=== PATIENT | female | born 1955 | race Caucasian/White ===

== ENCOUNTER → 2018-11-23 | Outpatient (CLI) | payer OTHER ==
--- NOTE | 2018-11-23 13:06 | RAD ---
Abdominal ultrasound without comparison for left upper quadrant tenderness. TECHNIQUE AND FINDINGS: Real-time grayscale and color and Doppler evaluation of the abdominal organs is performed. The aorta is nonaneurysmal. IVC is patent. There is diffuse fatty infiltration of the liver, with no focal parenchymal abnormalities identified. Echotexture is diffusely heterogeneous particularly involving poorly seen subdiaphragmatic regions. No intra or extrahepatic biliary ductal dilatation is seen. Common bile duct measures 3 mm. Gallbladder is fluid distended and grossly unremarkable. No sonographic Shah sign was identified. There is hepatopedal flow within a patent portal vein. Visualization of the pancreas is limited, however visualized portions are grossly unremarkable. The spleen measures 11.7 cm and is normal in appearance. No free or loculated fluid collections are identified. The right kidney measures 11.0 x 5.0 x 4.8 cm and the left measures 12.0 x 5.3 x 6.1 cm. No hydronephrosis or focal parenchymal abnormality. IMPRESSION: 1. Diffuse fatty infiltration of the liver, with vague heterogeneous echotexture throughout the poorly visualized subdiaphragmatic regions. No discrete hepatic masses. Consider further evaluation with three-phase CT scan of the abdomen or MRI of the abdomen for better assessment of hepatic parenchyma. Electronically signed by: Eric Wadsworth MD (11/23/2018 1:03 PM) [id number]
== END | disposition home or self-care (01) ==
LOC: US 08:20
PROVIDERS: ATTEND Registered Nurse
DX: K76.0 Fatty (change of) liver, not elsewhere classified (principal)
CPT/HCPCS: 76700

== ENCOUNTER → 2018-11-25 | Outpatient (CLI) | payer OTHER ==
[~2018-11-25] MED LIST: IOHEXOL 240 MG/ML 50ML VIAL. ONE; IOHEXOL 300 MG/ML 75 ML VIAL. IV ONE
[2018-11-25 09:34] LABS: CALCIUM 9.9 mg/dL (8.5-10.1); CREATININE 0.9 mg/dL (0.6-1.0); GFR 63.2; POTASSIUM 4.2 mmol/L (3.5-5.1)
--- NOTE | 2018-11-25 12:13 | RAD ---
CT of the abdomen with and without contrast, 11/25/2018: HISTORY: Abnormal liver on ultrasound exam Multidetector CT imaging was performed prior to and following an IV bolus injection of iodinated contrast material. The postcontrast imaging was obtained during access arterial and portal venous phases. Oral contrast material was also given for GI tract opacification. The liver is of lower than normal density in a fairly diffuse pattern compatible with fatty change. [Small medium density foci adjacent to the gallbladder are compatible with areas of focal fatty sparing.] No hepatic mass is seen. The gallbladder is unremarkable. The pancreas shows no abnormality. The spleen is of normal size. No renal or adrenal abnormality is detected. There is mild aortoiliac calcific plaquing without evidence of aneurysm. No abdominal adenopathy is seen. The stomach, duodenum and visualized bowel loops are unremarkable. No free fluid is evident in the abdomen. IMPRESSION: 1. Hepatic steatosis. 2. The abdomen is otherwise unremarkable. PQRS Compliance Statement: One or more of the following individualized dose reduction techniques were utilized for this examination: 1. Automated exposure control 2. Adjustment of the mA and/or kV according to patient size 3. Use of iterative reconstruction technique Electronically signed by: Efra Hummel MD (11/25/2018 12:10 PM) [facility]
== END | disposition home or self-care (01) ==
LOC: US 08:13
PROVIDERS: ATTEND Registered Nurse
DX: K76.0 Fatty (change of) liver, not elsewhere classified (principal)
CPT/HCPCS: 36415; 74170; 80048; Q9967

== ENCOUNTER → 2018-11-26 | Outpatient (CLI) | payer OTHER ==
--- NOTE | 2018-11-26 14:36 | RAD ---
PA and lateral chest x-ray without comparison for left upper quadrant pain, cough. FINDINGS: There is a small calcified granuloma in the right central lung. Lungs are otherwise clear. Cardiomediastinum is grossly unremarkable. No significant soft tissue or osseous abnormalities are seen. IMPRESSION: 1. No acute cardiopulmonary abnormality. Electronically signed by: Eric Wadsworth MD (11/26/2018 2:33 PM) [id number]
--- NOTE | 2018-11-27 09:37 | RAD ---
DATE: 11/26/2018 EXAM: MAMMO SAY SCREENING BILATERAL HISTORY: Routine screening COMPARISON: 01/24/2017 This study was interpreted with the benefit of Computerized Aided Detection (CAD). Breast Density: HETERO The breast parenchyma is heterogenously dense, which could reduce sensitivity of mammography. Breast parenchyma level C. FINDINGS: 2D and 3-D tomosynthesis imaging was performed in CC and MLO projections. There is mild breast asymmetry with increased density in the lateral retroareolar region on the left compared to the right. This is unchanged. No new or enlarging breast densities are seen. Minimal benign type calcifications present. No suspicious microcalcifications have developed. IMPRESSION: Stable mammograms without evidence of malignancy. BI-RADS CATEGORY: 2 BENIGN FINDING(S) RECOMMENDED FOLLOW-UP: 12M 12 MONTH FOLLOW-UP PQRS compliance statement: Patient information was entered into a reminder system with a target due date for the next mammogram. Mammography is a sensitive method for finding small breast cancers, but it does not detect them all and is not a substitute for careful clinical examination. A negative mammogram does not negate a clinically suspicious finding and should not result in delay in biopsying a clinically suspicious abnormality. "Our facility is accredited by the [employer] Mammography Program."
== END | disposition home or self-care (01) ==
LOC: PMG 13:52
PROVIDERS: ATTEND Registered Nurse
DX: Z12.31 Encounter for screening mammogram for malignant neoplasm of breast (principal); R10.12 Left upper quadrant pain; R05 Cough
CPT/HCPCS: 71046; 77063; 77067

== ENCOUNTER → 2019-07-01 | Outpatient (CLI) | payer OTHER ==
[~2019-07-01] MED LIST changes: -IOHEXOL 240 MG/ML 50ML VIAL. ONE
[2019-07-01 10:52] LABS: CREATININE 0.8 mg/dL (0.6-1.0); GFR 72.4
--- NOTE | 2019-07-01 17:50 | RAD ---
Examination: CT SOFT TISSUE NECK W/CONTRAST History: Mass on the back of the neck Comparison/Correlation: None Findings: Axial images of the neck were obtained following IV contrast. Sagittal and coronal reformatted images were provided. The posterior fossa is unremarkable. Left maxillary sinus noted with mucosal thickening. Parotid gland on the right is moderately atrophic. Left parotid gland is unremarkable. Submandibular glands are unremarkable. No enlarged cervical lymph nodes. Trachea is unremarkable. Partially visualized lung apices are unremarkable. A marker was placed at the lower cervical spine level posteriorly. Mild prominence of the subcutaneous fat at this site is noted and raises question of an underlying unencapsulated lipoma being present. A small soft tissue density nodule is present more superiorly and in close proximity to the musculature measuring 0.3 cm diameter. This is well demarcated and of indeterminate significance. Impression: Unencapsulated lipoma involvement is suspected at the site of palpable abnormality at the low cervical spine level posteriorly. No suspicious process. Moderate right parotid gland atrophy. PQRS Compliance Statement: One or more of the following individualized dose reduction techniques were utilized for this examination: 1. Automated exposure control 2. Adjustment of the mA and/or kV according to patient size 3. Use of iterative reconstruction technique Electronically signed by: Bob Stokes MD (07/01/2019 5:48 PM) [facility]
== END | disposition home or self-care (01) ==
LOC: CT 09:13
PROVIDERS: ATTEND Registered Nurse
DX: M54.2 Cervicalgia (principal); R22.1 Localized swelling, mass and lump, neck; I10 Essential (primary) hypertension; E11.9 Type 2 diabetes mellitus without complications; K11.0 Atrophy of salivary gland
CPT/HCPCS: 36415; 70491; 82565; Q9967

== ENCOUNTER → 2020-05-11 | Outpatient (CLI) | payer OTHER ==
[~2020-05-11] MED LIST changes: +CEPH-264 PO; +IOHEXOL 240 MG/ML 50ML VIAL. PO ONE; +PHEN-318 PO
[2020-05-11 08:54] LABS: CREATININE 0.9 mg/dL (0.6-1.0)
--- NOTE | 2020-05-11 12:05 | RAD ---
CT ABDOMEN W/CONTRAST History: RUQ ABD PAIN Comparison: 11/25/2018 Technique: After administration of intravenous contrast, helical CT of the abdomen was performed from the lung bases through the ischial tuberosities. Coronal and sagittal reconstructions were obtained. 75 mL of Omnipaque 300 were used. One or more of the following dose reduction techniques were utilized: Automated exposure control (AEC), Adjustment of mA and/or kV according to patient size, Use of iterative reconstruction technique such as ASiR, CT scan done according to ALARA and image gently/image wisely Findings: The visualized lung bases are clear. Coronary artery atherosclerotic disease. Hepatic steatosis. Cholecystectomy. PICC, spleen, and bilateral adrenal glands are normal. Symmetric renal enhancement. There is no focal renal mass. There is no hydronephrosis. The visualized loops of small bowel are normal. The visualized loops of large bowel are normal. There is no evidence of bowel obstruction. Appendix is normal. There is no free fluid. There is no mesenteric or retroperitoneal adenopathy. The abdominal aorta is normal in caliber. Degenerative changes of the spine. IMPRESSION: 1. No acute findings. 2. Hepatic steatosis. 3. Cholecystectomy. Electronically signed by: Evert Boyle MD (05/11/2020 12:02 PM) [id number]
== END ==
LOC: CT 07:54
PROVIDERS: ATTEND Surgery
DX: K76.0 Fatty (change of) liver, not elsewhere classified (principal); Z90.49 Acquired absence of other specified parts of digestive tract
CPT/HCPCS: 36415; 74160; 82565; 84520; Q9966; Q9967

== ENCOUNTER 2020-06-21 06:48 | Emergency (ER) | payer OTHER ==
[~2020-06-21] VITALS: Ht 170.2 cm; Wt 83.2 kg
[2020-06-21] MEDS: IV NORMAL SALINE 1,000ML 1,000 ML IV ONE (07:17)
--- NOTE | 2020-06-21 07:23 | PHYS DOC ---
Past History Past Medical History: Diabetes, High Cholesterol, Hypertension Past Surgical History: Cholecystectomy, Hysterectomy Smoking: Non-smoker Alcohol Use: None General Adult EDM: Chief Complaint: ABDOMINAL PAIN HPI: HPI: Heidi Alfred is a 64-year-old female who presents with 2 months of sharp abdominal pain. She states that she first felt a bulge in her right lower quadrant and since then has had constant right lower and upper quadrant abdominal pain that worsens after eating. Reports past surgical history of cholecystectomy. She recently saw her primary care physician who was suspicious for a hernia and sent her to Dr. uBllard for surgical evaluation. CT scan at this time was negative for herniation. She continues to have this pain as well as dysuria and hematuria. She states that 3 days ago she had an episode of stress incontinence which is unusual for her. Yesterday she went to a drop-in clinic at PCP office for evaluation for these complaints and had blood work and urinalysis done, but is unsure of the results. She affirms white vaginal discharge over the last month. Reports history of prior hysterectomy. Patient denies all other complaints including lower back pain, fever, and numbness and tingling in her lower extremities. Her last bowel movement was yesterday and was normal for her. Patient affirms history of hypertension, hypercholesterolemia, and diabetes mellitus. She has taken Tylenol intermittently without symptomatic control, most recently last night. Review of Systems: Review of Systems: Constitutional: Denies fever or chills HENT: Denies nasal congestion or sore throat Respiratory: Denies cough or shortness of breath Cardiovascular: Denies chest pain or palpitations GI: Denies nausea or vomiting; affirms abdominal pain : Affirms dysuria, hematuria, incontinence, and vaginal discharge Musculoskeletal: Denies back pain or joint pain Integument: Denies rash or skin lesions Neurologic: Denies headache, focal weakness or sensory changes Complete systems were reviewed and found to be within normal limits, except as documented in this note. Allergies: Allergies: Allergies Coded Allergies Type Severity Reaction Last Updated Verified No Known Drug Allergies 11/25/18 No Physical Exam: PE: Constitutional: Well developed, well nourished, no acute distress, non-toxic appearance HENT: Normocephalic, atraumatic Lungs & Thorax: No respiratory distress, equal chest rise and fall Abdomen: Soft, minimal tenderness to moderate palpation of the right upper and right lower quadrants, no rebound tenderness or guarding, normal bowel sounds in all 4 quadrants, negative Shah sign, no hernia appreciated, nondistended Skin: Warm, dry, no erythema, no rash Back: No tenderness, no CVA tenderness Extremities: No tenderness, no edema, sensation bilaterally intact in lower extremity Neurologic: Alert and oriented X 3, no focal deficits noted Psychologic: Affect normal, judgment normal Current Patient Data: Vital Signs: Vital Signs Date Time Temp Pulse Resp B/P (MAP) Pulse Ox O2 Delivery O2 Flow Rate FiO2 06/21/20 07:00 98.2 108 22 100 Course & Med Decision Making: Course & Med Decision Making Pertinent Labs reviewed. (See chart for details) Patient presented with abdominal pain that has been constant for last few months. Hx of recent work-ups with general surgery and PCP. Hx of recent CT from 05/2020 without acute finding per [employer] review. Patient also set up for outpatient ultrasound today. Physical exam stable. Labs obtained and posted to chart. UA with signs of infection with positive nitrites and microscopic RBC and WBCs. Empiric antibiotic given with IV Rocephin. Symptomatic pyridium provided. Patient stable for discharge with outpatient follow-up with PCP. Discussed case and findings with Bela PATEL with Dr. Burnham (PCP). Discussed findings and plan with patient, who acknowledges understanding and agreement. Patient stable to continue outpatient ultrasound for workup of chronic abdominal pain. Brittnion Disclaimer: [employer] Disclaimer: This electronic medical record was generated, in whole or in part, using a voice recognition dictation system. Departure Departure: Impression: Primary Impression: Acute UTI Additional Impression: Chronic abdominal pain Disposition: HOME/RESIDENCE PRIOR TO ADM Condition: STABLE Referrals: EUGENIO ELLIS MD (PCP) Patient Instructions: Urinary Tract Infection, [id number] Phenazopyridine Hcl (PYRIDIUM) 200 Mg Tablet 200 MG PO Q8HRS for urinary tract infection, #6 TAB Prov: JAYSON JACK DO 06/21/20 Cephalexin (KEFLEX) 500 Mg Capsule 1 CAP PO TID for UTI for 7 Days, #21 CAP 0 Refills Prov: JAYSON JACK DO 06/21/20 Justification of Admission: Justification of Admission: Justification of Admission Dx: N/A JAYSON JACK DO Jun 21, 2020 07:23
[2020-06-21] MEDS: KETOROLAC 15 MG/ML VIAL. IVP ONE (07:28)
[2020-06-21] MEDS: FAMOTIDINE 20 MG/2 ML VIAL IVP ONE (07:28)
[2020-06-21 07:30] LABS: BASO # 0.1 x10^3/uL (0.0-0.2); BASO % 1 % (0-3); EOS % 0 % (0-3); HEMATOCRIT 43.6 % (36.0-47.0); HEMOGLOBIN 14.7 g/dL (12.0-15.5); LYMPH # 1.6 x10^3/uL (1.0-4.8); LYMPH % 12 % (24-48); MEAN CORPUSCULAR HEMOGLOBIN 30 pg (25-35); MEAN CORPUSCULAR HGB CONC 34 g/dL (31-37); MEAN CORPUSCULAR VOLUME 90 fL (79-100); MONO # 1.1 x10^3/uL (0.0-1.1); MONO % 8 % (0-9); NEUT # 10.7 x10^3uL (1.8-7.7); NEUT % 80 % (31-73); PLATELET COUNT 272 x10^3/uL (140-400); RED BLOOD COUNT 4.84 x10^6/uL (3.50-5.40); RED CELL DISTRIBUTION WIDTH 13.2 % (11.5-14.5); WHITE BLOOD COUNT 13.5 x10^3/uL (4.0-11.0)
[2020-06-21 07:36] LABS: CALCIUM 9.4 mg/dL (8.5-10.1); CREATININE 0.9 mg/dL (0.6-1.0); POTASSIUM 3.5 mmol/L (3.5-5.1)
[2020-06-21 07:42] LABS: ALBUMIN 3.9 g/dL (3.4-5.0); ALBUMIN/GLOBULIN RATIO 0.8 (1.0-1.7); MAGNESIUM 2.1 mg/dL (1.8-2.4); TOTAL BILIRUBIN 0.9 mg/dL (0.2-1.0); TOTAL PROTEIN 8.5 g/dL (6.4-8.2)
[2020-06-21 08:50] LABS: BACTERIA,URINE MOD /HPF (0-FEW); BILIRUBIN,URINE NEG (NEG); CLARITY,URINE TURBID; COLOR,URINE YELLOW; GLUCOSE,URINE >=1000 mg/dL (NEG); NITRITE,URINE POS (NEG); SQUAMOUS EPITHELIAL CELL,UR OCC /LPF; UROBILINOGEN,URINE 0.2 mg/dL (0.2 mg/dL); WBC,URINE 20-40 /HPF (0-4)
[2020-06-21] MEDS ORDERED: PHEN-318 PO (09:10)
[2020-06-21] MEDS ORDERED: CEPH-264 PO (09:10)
[2020-06-21] MEDS ORDERED: cefTRIAXone SODIUM 1 GM VIAL ONE (09:18)
[2020-06-21] MEDS ORDERED: IV NORMAL SALINE 50ML 50 ML ONE (09:18)
[2020-06-21] MEDS: PHENAZOPYRIDINE 200 MG TABLET. PO ONE (09:24)
== END 2020-06-21 09:30 | disposition home or self-care (01) ==
LOC: ER 06:48
DX: N39.0 Urinary tract infection, site not specified (principal); G89.29 Other chronic pain; E11.9 Type 2 diabetes mellitus without complications; E78.00 Pure hypercholesterolemia, unspecified; I10 Essential (primary) hypertension; Z90.49 Acquired absence of other specified parts of digestive tract; Z90.710 Acquired absence of both cervix and uterus
CPT/HCPCS: 36415; 80053; 81001; 83735; 85025; 85610; 85730; 87086; 96361; 96374; 96375; 99284; J0696; J1885; J3490; J7030

== ENCOUNTER → 2020-06-21 | Outpatient (CLI) | payer OTHER ==
[~2020-06-21] MED LIST changes: -IOHEXOL 240 MG/ML 50ML VIAL. PO ONE; -IOHEXOL 300 MG/ML 75 ML VIAL. IV ONE
--- NOTE | 2020-06-21 13:14 | RAD ---
EXAM: Renal sonogram. HISTORY: Hematuria. Urinary tract infection. TECHNIQUE: Sonographic imaging of the kidneys and bladder was performed. COMPARISON: CT dated 05/11/2020. FINDINGS: The kidneys are normal in size. No solid or cystic renal lesion is seen. The urinary bladder is unremarkable. There is no post void bladder residual. There is incidental hepatic steatosis. IMPRESSION: Sonographically unremarkable kidneys. Electronically signed by: Ariana Sotelo MD (06/21/2020 1:11 PM) [id number]
== END | disposition home or self-care (01) ==
LOC: US 09:41
PROVIDERS: ATTEND Physician Assistant Medical
DX: K76.0 Fatty (change of) liver, not elsewhere classified (principal); R31.9 Hematuria, unspecified
CPT/HCPCS: 76770

== ENCOUNTER → 2020-06-22 | Outpatient (CLI) | payer OTHER ==
--- NOTE | 2020-06-22 12:22 | RAD ---
ABDOMEN LTD History: Right upper quadrant mass Comparison: CT May 11, 2020 Findings: Multiple sonographic images of the abdomen are submitted. No sonographic abnormality is demonstrated in the area of concern in the right upper abdomen. Right kidney measured 10.8 x 5.4 x 5.2 cm, no hydronephrosis. There is segmental visualization of the inferior vena cava. There is no abnormality of the visualized pancreas, tail partially obscured by bowel gas. Hepatic echotexture is within normal limits. Right lobe of the liver measured 15.9 cm longitudinal. Common bile duct is within normal limits about 0.5 cm. There has been cholecystectomy. Impression: 1. No significant abnormality is demonstrated. Electronically signed by: Evert Davis MD (06/22/2020 12:20 PM) [id number]
[2020-06-22 13:28] LABS: AMYLASE 25 U/L (25-115); ANION GAP 13 (6-14); BLOOD UREA NITROGEN 17 mg/dL (7-20); CARBON DIOXIDE 25 mmol/L (21-32); CHLORIDE 100 mmol/L (98-107); GFR 55.8; GLUCOSE 151 mg/dL (70-99); LIPASE 158 U/L (73-393); SODIUM 138 mmol/L (136-145)
[2020-06-22 13:33] LABS: BASO % 1 % (0-3); EOS % 0 % (0-3); HEMATOCRIT 45.5 % (36.0-47.0); HEMOGLOBIN 15.1 g/dL (12.0-15.5); LYMPH # 1.9 x10^3/uL (1.0-4.8); LYMPH % 22 % (24-48); MEAN CORPUSCULAR HEMOGLOBIN 31 pg (25-35); MEAN CORPUSCULAR HGB CONC 33 g/dL (31-37); MEAN CORPUSCULAR VOLUME 92 fL (79-100); MONO # 0.6 x10^3/uL (0.0-1.1); MONO % 7 % (0-9); NEUT % 70 % (31-73); PLATELET COUNT 285 x10^3/uL (140-400); RED BLOOD COUNT 4.95 x10^6/uL (3.50-5.40); RED CELL DISTRIBUTION WIDTH 13.3 % (11.5-14.5); WHITE BLOOD COUNT 8.6 x10^3/uL (4.0-11.0)
== END | disposition home or self-care (01) ==
LOC: US 11:38
PROVIDERS: ATTEND Family Medicine
DX: E11.65 Type 2 diabetes mellitus with hyperglycemia (principal); R10.11 Right upper quadrant pain; Z90.49 Acquired absence of other specified parts of digestive tract
CPT/HCPCS: 36415; 76705; 80048; 82150; 82553; 83036; 83690; 84484; 85025

== ENCOUNTER → 2020-06-30 | Outpatient (CLI) | payer OTHER ==
--- NOTE | 2020-06-30 16:46 | RAD ---
SMALL BOWEL SERIES History: Right-sided abdominal pain Comparison: May 11, 2020 CT abdomen pelvis exam Findings: Small bowel examination was performed. [facility] radiograph demonstrates evidence of cholecystectomy and a nonobstructive bowel gas pattern. Small bowel is not significantly dilated. No stricture was identified. There was contrast in the ascending colon at about 180 minutes. No convincing small bowel wall thickening was identified on the various images. Impression: 1. There was no evidence of small bowel obstruction or significant small bowel wall thickening. Electronically signed by: Evert Davis MD (06/30/2020 4:43 PM) [id number]
== END | disposition home or self-care (01) ==
LOC: RAD 08:12
PROVIDERS: ATTEND Internal Medicine Gastroenterology
DX: R19.01 Right upper quadrant abdominal swelling, mass and lump (principal)
CPT/HCPCS: 74250

== ENCOUNTER → 2021-09-12 | Outpatient (CLI) | payer MEDICARE, OTHER ==
--- NOTE | 2021-09-12 14:31 | RAD ---
Bilateral digital screening 2-D and 3-D (digital breast tomosynthesis) mammogram: Reason for examination: Routine screening. Comparison: Mammograms from 11/26/2018 and the 01/24/2017. Interpretation was made with the benefit of CAD. FINDINGS: Breast density: Category B. There are scattered areas of fibroglandular density. No new suspicious breast mass, malignant appearing calcifications, or architectural distortion is see n. There is a 7 mm oval circumscribed mass in the best seen on the MLO images, which is stable. IMPRESSION: No evidence of malignancy. Assessment: BI-RADS 2. Benign findings. Recommendation: Routine screening mammograms. The patient will receive a letter with the results in the mail. Patient information will be entered i nto the mammography reminder system with a target recall date for the next mammogram. A reminder nikki er will be generated. Electronically signed by: Suzette Simmons MD (09/12/2021 2:28 PM) [id number]
== END ==
LOC: MAMMO 08:07
PROVIDERS: ATTEND Family Medicine
DX: Z12.31 Encounter for screening mammogram for malignant neoplasm of breast (principal); N63.0 Unspecified lump in unspecified breast
CPT/HCPCS: 77063; 77067